=== PATIENT | female | born 1995 | race African-American/Black ===

== ENCOUNTER 2017-04-15 02:42 | Emergency (ER) | payer OTHER ==
[~2017-04-15] VITALS: Ht 167.6 cm; Wt 62.0 kg
[2017-04-15] MEDS ORDERED: ACETAMINOPHEN 500MG TABLET PO ONE (03:30)
[2017-04-15 04:30] VITALS: BP 118/49
== END 2017-04-15 05:06 | disposition home or self-care (01) ==
LOC: ER 02:42
DX: O9A.212 Injury, poisoning and certain other consequences of external causes complicating pregnancy, second trimester (principal); F07.81 Postconcussional syndrome; O20.9 Hemorrhage in early pregnancy, unspecified; Z3A.16 16 weeks gestation of pregnancy
CPT/HCPCS: 99283

== ENCOUNTER 2017-04-16 12:40 | Emergency (ER) | payer OTHER ==
[~2017-04-16] VITALS: Ht 160 cm; Wt 55.0 kg
[2017-04-16 12:43] VITALS: BP 112/78
== END 2017-04-16 15:18 | disposition left against medical advice (07) ==
LOC: ER 12:52
DX: F41.9 Anxiety disorder, unspecified (principal); Z53.21 Procedure and treatment not carried out due to patient leaving prior to being seen by health care provider

== ENCOUNTER 2017-04-16 17:19 | Emergency (ER) | payer OTHER ==
[~2017-04-16] VITALS: Ht 165.1 cm; Wt 55.0 kg
[2017-04-16 17:24] VITALS: BP 102/58
== END 2017-04-16 23:15 | disposition left against medical advice (07) ==
LOC: ER 17:20
DX: Z31.89 Encounter for other procreative management (principal); J45.909 Unspecified asthma, uncomplicated
CPT/HCPCS: 81025; 99283

== ENCOUNTER 2017-04-17 01:30 | Emergency (ER) | payer OTHER | END 2017-04-17 02:38 | disposition left against medical advice (07) | LOC: ER 01:30 | DX: Z53.21 Procedure and treatment not carried out due to patient leaving prior to being seen by health care provider (principal) ==